=== PATIENT | male | born 1995 | race Two or more races ===

== ENCOUNTER 2021-05-21 08:45 | Outpatient (CLI) | payer OTHER | END 2021-05-21 09:02 | disposition home or self-care (01) | LOC: LAB 08:45 | PROVIDERS: ATTEND Orthopaedic Surgery | DX: D64.89 Other specified anemias (principal); E88.89 Other specified metabolic disorders; D68.8 Other specified coagulation defects; N39.0 Urinary tract infection, site not specified; Z22.322 Carrier or suspected carrier of Methicillin resistant Staphylococcus aureus; I49.8 Other specified cardiac arrhythmias; I10 Essential (primary) hypertension; Z76.89 Persons encountering health services in other specified circumstances ==

== ENCOUNTER 2021-06-01 06:20 | Day surgery (SDC) | payer OTHER | END 2021-06-01 16:10 | disposition home or self-care (01) | LOC: CIR.AMB 06:20 | PROVIDERS: ATTEND Orthopaedic Surgery | DX: M24.021 Loose body in right elbow (principal); M65.831 Other synovitis and tenosynovitis, right forearm; M24.521 Contracture, right elbow; Z20.822 Contact with and (suspected) exposure to COVID-19 ==